=== PATIENT | female | born 1950 | race Caucasian/White ===

== ENCOUNTER 2021-06-07 15:09 | Outpatient (CLI) | payer MEDICARE ==
[2021-06-07 16:14] VITALS: BP 138/85
--- NOTE | 2021-06-07 16:14 | SLEEP CARE CONSULTATION ---
Information from patient questionnaire entered by Skylar Villasenor MA. I have reviewed and concur with the information entered by Skylar Villasenor MA. This document represents the service I personally performed and the decisions made by , Jill Godwin ARNP. History of Present Illness Service Date and Time: 06/07/2021 1509 Reason for Visit: New patient (INITIAL APPT, ON CPAP ALREADY), Previously diagnosed sleep apnea, sleep apnea on CPAP therapy Chief Complaint: reports: Unrefreshed sleep, Snoring, Excessive daytime sleepiness, Frequent awakenings at night Date of Onset: 4-6 YEARS Usual bedtime: 11 PM Time it takes to fall asleep: INSTANTLY Snores at night: Yes Observed to quit breathing while asleep: Yes Number of times waking at night: 3-4 Reasons for waking at night: reports: Snoring, Gasping for air, Bathroom, Other Toss, Turn, or Twitch while sleeping: Yes Recalls having dreams: Yes (FRANCISCO JAVIER) Usually gets out of bed at: 0600 Feels refreshed in the morning: No Morning headache: No Ever fallen asleep while driving: Yes Takes day naps: Yes Prior sleep studies: Yes Additional HPI information: BETZY VARNER was previously diagnosed 2019 to have moderate, AHI 28.4, obstructive and central sleep apnea-hypopnea syndrome and comes in today to [facility] for ASV BIPAP therapy. - Parasomnia Symptoms Ever been unable to move upon waking from sleep: Yes Walks in sleep: No Ever acted out dreams in sleep: No Ever felt weak in the knees when startled or emotional: Yes Bothered by creepy, crawly, restless sensations in legs: No Problems with memory or concentration: Yes CPAP Compliance Data - Data Reviewed with Patient Average duration of nightly device use: 8 HOURS 6 MINUTES Compliance rate %: 1.7 (180 day) Current pressure setting (cmH2O): 5-25/0-20 (ASV) Humidity settin Heated hose settin Average residual AHI: 2.5 Average large leak: 17 minutes 20 secs Compliance data discussion: She got her initial supplies and machine from [facility]. She has been getting her supplies from CPAP ( phone #: [phone]) more recently. She moved her about 1 year ago and forgot her BIPAP in storage. She got her letter from [employer] about her machine being on the recall in February and did not restart her therapy because of the recall. She was using a full face mask. Subjective Missed days of use due to: reports: other (recall and moving) Patient concerns: reports: mask leak noise. denies: aerophagia, mask discomfort, air blowing in eyes, condensation in mask/hose, nasal congestion, dry mouth, nose, throat, epistaxis, other Observed to snore while using device: No Current pressure setting perceived as: comfortable On therapy, patient: reports: sleeping better, awakening more refreshed, being more awake and alert during the day, more rested overall. denies: drowsiness while driving Initial Sheridan Sleepiness Scale score: 14 (2021) Past Medical History Past Medical History: reports: Asthma, Depression Social History The patient's occupation is a RE. Patient is and lives in . Have you smoked in the past 12 months: No Cigarettes per day (20/pack): 20 Years of smokin Quit date: 1970 Smoking Pack Years: 2.0 Alcohol use: Yes Alcohol amount and frequency: 1 X DAILY Caffeine use: Yes Caffeine amount and frequency: 2 X DAILY Family History Family history of sleep disordered breathing: Yes (snoring) Family Hx Sleep Apnea: Father: Snoring, Sleep apnea - Untreated, Sibling: Snoring, Sleep apnea - Untreated Allergies and Home Medications Known drug allergies: Yes (PNC, ALIEVE) Home medication list reviewed: Yes Allergy and home medication list: generic Singulair Lexapro Review of Systems Weight gain over past 5 years: 20 gained back during last 2 years Weight loss over past 5 years: 25 two years ago Cardiovascular: denies: high blood pressure Gastrointestinal: reports: heartburn, diarrhea Psychiatric: reports: depression Ear/Nose/Throat: reports: sinus problems Immunologic: reports: sneezing, allergies to food or environment (seasonal) Physical Exam Vital signs obtained and entered by: JOCELIN ROGERS Blood Pressure: 138/85 (RIGHT, 76 PULSE, RESP 16) Heart Rate: 87 O2 Saturation: 97 (WITH PAPER MASK) Height: 5 ft 8 in Weight: 160 lb (W/O CLOTHES) Body Mass Index: 24.3 BMI Classification: Healthy weight Impression and Plan 1. Obstructive Sleep Apnea-Hypopnea Syndrome, moderate. On BIPAP therapy, the patient has better sleep quality and is more rested overall. Patient has not been able to use her BIPAP because of the recall. Patient has already registered their device for the recall. Patient denies any black particles seen in machine or hoses, any unusual odors coming from device. Patient has not experienced any physical symptoms such as upper airway irritation, headache, skin or eye irritation, asthma, nausea/vomiting, difficulty breathing or chest pain. If patient is not able to sleep due to waking up choking, gasping for air or other respiratory distress that they may decide to continue using it until it is either replaced or repaired. Patient would like to try to obtain a portable ASV Bipap. I will write a prescription for her to take with her. She also needs new supplies and a DME in area. I will have my operating room coordinator inform of DME options. A [facility]O prescription will then be made. Patient advised to contact this office if further supply problems. Patient voiced understanding and agreement with plan. Patient's apnea severity and rationale for treatment to reduce apnea, improve sleep quality and reduce cardiovascular and cerebrovascular events was reviewed. I also reviewed the benefit of consistent device use of BIPAP for depression. * Continue ASV BIPAP pressure EPAP 25/5 with up to 20 cmH2O pressure support * Prescription for portable ASV BIPAP * Transfer DME * Notify me if snoring with mask or feeling that the pressure is too much or too little * Maintain a healthy weight * Call this office if any problems using BIPAP * Return for follow up one month after obtaining new device to check her complia nce, or sooner if concerns arise Counseling Topics: Weight control Visit Type: In Office Time Spent with Patient (minutes): 35 Provider Statement: I spent 100% of the Face to Face Visit with the patient with greater than 50% spent counseling the patient and coordination of care.
== END 2021-06-07 15:10 | disposition home or self-care (01) ==
LOC: SC 15:09
PROVIDERS: ATTEND Nurse Practitioner Family
DX: G47.33 Obstructive sleep apnea (adult) (pediatric) (principal)
CPT/HCPCS: 99203; G0463; 99212

== ENCOUNTER 2021-10-22 10:40 | Outpatient (CLI) | payer MEDICARE ==
--- NOTE | 2021-10-23 11:40 | XRAY Report ---
PROCEDURE: Hand 2 View RT INDICATIONS: RIGHT FINGER PAIN TECHNIQUE: 2 views of the hand(s) acquired. COMPARISON: None. FINDINGS: Bones: There is a nondisplaced fracture at the base of the fourth proximal phalanx. No suspicious feng ny lesions. Mild osteopenia. Soft tissues: No suspicious soft tissue calcifications. IMPRESSION: 1. A nondisplaced fracture at the base of the fourth proximal phalanx Reviewed by: Bianca Malcolm MD on 10/23/2021 11:38 AM PDT Approved by: Bianca Malcolm MD on 10/23/2021 11:38 AM PDT Station ID: [id number]
== END 2021-10-22 10:41 | disposition home or self-care (01) ==
LOC: DI 10:40
PROVIDERS: ATTEND Nurse Practitioner Family
DX: S62.644A Nondisplaced fracture of proximal phalanx of right ring finger, initial encounter for closed fracture (principal)

== ENCOUNTER 2022-01-16 08:49 | Outpatient (CLI) | payer MEDICARE | END 2022-01-16 08:50 | disposition home or self-care (01) | LOC: DI.S 08:49 | DX: Z53.9 Procedure and treatment not carried out, unspecified reason (principal) ==

== ENCOUNTER 2022-12-08 12:48 | Outpatient (CLI) | payer MEDICARE ==
--- NOTE | 2022-12-09 00:35 | DEXA Report ---
PROCEDURE: Dexa Spine and/or Hip INDICATIONS: OSTEOPENIA TECHNIQUE: Dual energy x-ray absorptiometry (DXA) was performed on a [employer] System. Regions measur ed are the AP Spine, femoral neck, and if needed forearm. COMPARISON: None FINDINGS: Lumbar Spine: Bone Mineral Density 0.829 g/cm/cm,T score -2.9. Left Femoral Neck: Bone Mineral Density 0.752 g/cm/cm, T score -0.6. (T score greater or equal to -1.0: NORMAL) (T score from -1.1 to -2.4: OSTEOPENIA) (T score less than or equal to -2.5 to: OSTEOPOROSIS) Impression: By WHO criteria, this patient has osteoporosis. Patients with diagnosis of osteoporosis or osteopenia should have regular bone mineral density assess ment. For those eligible for Medicare, routine testing is allowed once every 2 years. Testing frequ ency can be increased for patients who have rapidly progressing disease or for those who are receivin g medical therapy to restore bone mass. Reviewed by: Emily Garcia MD on 12/09/2022 12:34 AM PDT Approved by: Emily Garcia MD on 12/09/2022 12:34 AM PDT Station ID: [id number]
== END 2022-12-08 12:49 | disposition home or self-care (01) ==
LOC: DI 12:48
PROVIDERS: ATTEND Nurse Practitioner Family
DX: M81.0 Age-related osteoporosis without current pathological fracture (principal)

== ENCOUNTER 2023-05-19 11:55 | Outpatient (CLI) | payer MEDICARE ==
--- NOTE | 2023-05-19 15:21 | CT Report ---
PROCEDURE: Thoracic Spine WO INDICATIONS: OSTEOPOROSIS TECHNIQUE: Noncontrast 3 mm thick sections acquired through the region of interest in the thoracic spine. Sagit bertha and coronal reformats were then constructed. For radiation dose reduction, the following was used : automated exposure control, adjustment of mA and/or kV according to patient size. COMPARISON: DEXA bone densitometry dated 12/08/2022, which demonstrated osteoporosis. FINDINGS: Image quality: Excellent. Bones: There is normal overall bony alignment. The bones are diffusely osteopenic. Minimal chronic compressions of T3, T4, T5, T6, T7, T8, and T9. No lytic or blastic bony lesions. No acute vertebral body compression fractures. No suspicious sclerotic or lytic bony lesions. Central spinal canal is of normal overall caliber. Soft tissues: No paravertebral masses or hematomas. Visualized posteromedial lungs appear clear. IMPRESSION: 1. Diffuse osteopenia with numerous minimal chronic compressions. No lytic or blastic bony lesions id entified. Comment: In a male, consider benign osteoporotic compressions. Also, consider potential multiple myel heather as an etiology. Consider possible multiple myeloma workup. Reviewed by: Beto Parks MD on 05/19/2023 3:20 PM PST Approved by: Beto Parks MD on 05/19/2023 3:20 PM PST Station ID: [id number]
--- NOTE | 2023-05-19 16:12 | CT Report ---
PROCEDURE: Lumbar Spine WO INDICATIONS: OSTEOPOROSIS TECHNIQUE: Noncontrast 3 mm thick sections acquired from the T12 level to the sacrum. Sagittal and coronal refo rmats were constructed. For radiation dose reduction, the following was used: automated exposure co ntrol, adjustment of mA and/or kV according to patient size. COMPARISON: CT thoracic spine without contrast. FINDINGS: Image quality: Excellent. Bones: There is normal bony alignment. The bones are osteopenic. No compression fractures. No suspic ious lytic or blastic bony lesions. No pars defects. T12-L1: No canal stenosis or foraminal stenosis L1-L2: No canal stenosis or foraminal stenosis L2-L3: Disc bulge. No canal stenosis or significant foraminal stenosis. L3-L4: Disc bulge. Facet and ligament hypertrophy. Epidural lipomatosis. Mild canal stenosis. No si gnificant foraminal stenosis. L4-L5: Disc bulge. Facet and ligament hypertrophy. Epidural lipomatosis. Moderate to severe canal s tenosis. Mild to moderate left foraminal stenosis. L5-S1: Disc bulge. Epidural lipomatosis. Facet hypertrophy. No significant canal stenosis or forami nal stenosis. Soft tissues: No retroperitoneal masses or hematomas. Visualized aorta is normal in caliber. IMPRESSION: 1. Diffuse osteopenia. 2. No acute or chronic lumbar compressions. 3. Canal stenosis is mild at L3-L4 and moderate to severe at L4-L5. Canal stenosis is in part seconda ry to epidural lipomatosis. Reviewed by: Beto Parks MD on 05/19/2023 4:11 PM PST Approved by: Beto Parks MD on 05/19/2023 4:11 PM PST Station ID: [id number]
== END 2023-05-19 11:56 | disposition home or self-care (01) ==
LOC: DI 11:55
PROVIDERS: ATTEND Registered Nurse
DX: E88.2 Lipomatosis, not elsewhere classified (principal); M48.061 Spinal stenosis, lumbar region without neurogenic claudication; M85.89 Other specified disorders of bone density and structure, multiple sites; M48.54XD Collapsed vertebra, not elsewhere classified, thoracic region, subsequent encounter for fracture with routine healing